=== PATIENT | female | born 1960 | race Caucasian/White ===

== ENCOUNTER 2019-01-19 16:29 | Emergency (ER) | payer OTHER ==
[2019-01-19] MEDS: IBUPROFEN 200 MG TAB PO (19:25)
[2019-01-19] MEDS: ACETAMINOPHEN 325 MG TAB PO (19:25)
== END 2019-01-19 23:22 | disposition home or self-care (01) ==
LOC: FTE 16:29
DX: S00.83XA Contusion of other part of head, initial encounter (principal); W19.XXXA Unspecified fall, initial encounter; Y92.9 Unspecified place or not applicable
CPT/HCPCS: 70140; 99283-25